=== PATIENT | female | born 1985 | race Caucasian/White ===

== ENCOUNTER → 2016-12-09 | Outpatient (CLI) | payer SELFPAY ==
[2011-01-01 19:54] VITALS: BP 111/67
--- NOTE | 2016-12-09 14:04 | DI ---
US OB TRANSVAGINAL, US OB LESS THAN 14 WEEKS,12/09/2016 12:48 PM: Clinical History: Unsure dates and a patient in the first trimester. Previous Exam: None at this facility. Findings: Transvaginal and transabdominal grayscale and color Doppler sonographic images are obtained through t he pelvis, and demonstrate a single intrauterine gestation with a crown-rump length of 2.0 cm corresp onding with an estimated gestational age of 8 weeks 5 days. No detected Doppler heart tones are obtained. The ovaries are normal bilaterally and contain a few maturing follicles. There is no free fluid. Impression: A single nonviable intrauterine gestation with no detectable Doppler heart tones. Recommend gynecological consultation.
== END ==
LOC: LAB 12:38 → US 12:38
PROVIDERS: ATTEND Family Medicine
DX: O02.1 Missed abortion (principal)
CPT/HCPCS: 36415; 76801; 76817; 84702; 86900; 86901

== ENCOUNTER 2016-12-10 06:07 | Day surgery (SDC) | payer SELFPAY ==
[~2016-12-10 06:07] MED LIST: ATROPINE SULFATE 0.4 MG/1 ML VIAL IVP PRN; HYDROmorphone 2 MG/1 ML IVP PRN; LIDOCAINE W/ SODIUM BICARB 0.5 ML SYR ONE; Lactated Ringers 1,000 ML PRIMARY IV ONE; Lactated Ringers 1,000 ML PRIMARY IV SCH; NORMAL SALINE 10 ML SYRINGE FLUSH IVP PRN; ONDANSETRON 4 MG/2 ML VIAL IVP PRN; Ondansetron ODT Tab 8 MG TAB PO PRN; fentaNYL Inj 100 MCG/2 ML VIAL IVP PRN
[2016-12-10] MEDS ORDERED: SCOPOLAMINE HYDROBROMIDE 1.5 MG - 1 EACH PATCH TRANSDERM ONE ×2 (06:22→06:45)
[2016-12-10] MEDS ORDERED: MIDAZOLAM 5 MG/1 ML ONE (06:39)
[2016-12-10] MEDS ORDERED: fentaNYL Inj 100 MCG/2 ML VIAL ONE (06:39)
[2016-12-10] MEDS ORDERED: Acetaminophen 1000mg Inj 100 ML IV ONE (06:45)
[2016-12-10 06:56] LABS: HEMATOCRIT 42.6 % (37.0-47.0); HEMOGLOBIN 14.6 g/dL (12.0-16.0)
[2016-12-10] MEDS ORDERED: DEXAMETHASONE PF 10 MG/1 ML VIAL ONE (07:40)
[2016-12-10] MEDS ORDERED: ONDANSETRON 4 MG/2 ML VIAL ONE (07:40)
[2016-12-10] MEDS ORDERED: KETOROLAC 30 MG/1 ML VIAL ONE (07:57)
[2016-12-10] MEDS ORDERED: NORMAL SALINE 10 ML SYRINGE FLUSH IVP PRN (08:00)
[2016-12-10] MEDS ORDERED: Sodium Chloride 0.9% 1,000 ML PRIMARY IV SCH (08:00)
[2016-12-10] MEDS ORDERED: IBUPROFEN 800 MG TABLET PO PRN (08:00)
[2016-12-10] MEDS ORDERED: Methylergonovine Tab 0.2 MG TAB PO SCH (08:00)
[2016-12-10] MEDS ORDERED: Lactated Ringers 1,000 ML PRIMARY IV ONE (08:00)
--- NOTE | 2016-12-10 08:05 | OB.OP.NOTE ---
Operative Report Surgeon: Jaden Anesthesia Type: General Anesthesia Provider: Astrid Cotto CRNA Surgery Date: 12/10/16 Preoperative Diagnosis: Missed AB Postoperative Diagnosis: Same Procedure: Suction D&C Estimated Blood Loss (mL): 900 Fluids: 1800 ml Complications: None Findings at Surgery: 12 cm RV uterus preprocedure. 10 cm post. Copious POC. Indications for the Procedure: 8w5d CRL fetus with no FCA. Pt. desired D&C. Description of Procedure: The patient was taken to the operating room and placed supine where general laryngeal mask anesthesia was administered. She was then placed in lithotomy position in [facility]. Examination under anesthesia was unremarkable. She was prepped and draped in the normal sterile fashion and her bladder was emptied of urine with a straight catheter. A weighted speculum was placed in the vagina and the anterior lip of the cervix was grasped with a semen tooth tenaculum. The uterus was sounded to a depth of 12 cm. The cervix was then dilated with Everardo dilators to #30. A 10 mm curved suction curette was then introduced to the uterine fundus and vacuum tubing was applied. The vacuum was turned on and several passages of suction curettage were made with return of copious products of conception. Sharp curettage was then performed with good cry noted in all quadrants except the left posterior quadrant. Several additional passes of suction curettage were then made during which was noted that the length of the cavity had shrunk noticeably. When no additional products of conception were returned, sharp curettage was again performed with good cry noted in all 4 quadrants now. A final passage of suction curettage returned no additional products of conception and minimal blood. The tenaculum was then removed from the cervix and hemostasis was obtained with direct pressure using a sponge stick. Sponge lap and needle counts were correct 2. There were no Locations at surgery. The patient left to recovery in good condition. Plan: Routine postoperative care and discharge to home.
[2016-12-10] MEDS ORDERED: Hetastarch 6% + NS 500 ML IV ONE ×2 (08:11→08:38)
[2016-12-10 09:48] VITALS: TEMP 98
[2016-12-10 09:50] VITALS: RESP 16
== END 2016-12-10 09:35 | disposition home or self-care (01) ==
LOC: SDSC 06:07
PROVIDERS: ATTEND Obstetrics & Gynecology
DX: O02.1 Missed abortion (principal)
CPT/HCPCS: 59820; 85014; 85018; J0131; J1885; J2704; J3010; J1100; J2250; J2405; J7120

== ENCOUNTER 2019-05-10 02:50 | Inpatient (IN) ==
[2019-05-10] MEDS ORDERED: Zolpidem Tab 5 MG TAB PO PRN (05:00)
[2019-05-10] MEDS ORDERED: BUTORPHANOL TARTRATE 2 MG/1 ML VIAL IVP PRN (05:00)
[2019-05-10] MEDS ORDERED: ONDANSETRON 4 MG/2 ML VIAL IVP PRN ×2 (05:00→13:29)
[2019-05-10] MEDS ORDERED: Nalbuphine Inj 20 MG/ML Ampule IVP PRN ×2 (05:00→13:29)
[2019-05-10] MEDS ORDERED: CITRIC ACID/SODIUM CITRATE 30 ML CUP PO PRN (05:00)
[2019-05-10] MEDS ORDERED: NALOXONE 0.4 MG/1 ML VIAL IVP PRN (05:00)
[2019-05-10] MEDS ORDERED: Metoclopramide Inj 10 MG/2 ML VIAL IV PRN (05:00)
[2019-05-10] MEDS ORDERED: Carboprost Inj 250 MCG/ML AMP IM PRN (05:00)
[2019-05-10] MEDS ORDERED: METHYLERGONOVINE MALEATE 0.2 MG/1 ML VIAL IM PRN (05:00)
[2019-05-10] MEDS ORDERED: CefOXitin Inj 2 GM in Sodium Chloride 0.9% 100 ML IV PRN (05:00)
[2019-05-10] MEDS ORDERED: diphenhydrAMINE 50 MG/1 ML VIAL IVP PRN ×2 (05:00→13:29)
[2019-05-10] MEDS ORDERED: TERBUTALINE SULFATE 1 MG/1 ML SDV SUBCUT PRN (05:00)
[2019-05-10] MEDS ORDERED: LIDOCAINE HCL 2 % 10 ML JELLY URO-JECT TOPICAL PRN ×2 (05:00→13:29)
[2019-05-10] MEDS ORDERED: fentaNYL Inj 100 MCG/2 ML VIAL IVP PRN (05:00)
[2019-05-10] MEDS ORDERED: OXYTOCIN 10 UNIT/1 ML IM PRN (05:00)
[2019-05-10] MEDS ORDERED: MISOPROSTOL 200 MCG TABLET RECTAL PRN (05:00)
[2019-05-10] MEDS ORDERED: Phenylephrine Inj 50 MCG in Sodium Chloride 0.9% vial 0.5 ML IVP PRN (05:00)
[2019-05-10] MEDS ORDERED: CALCIUM CARBONATE 500 MG (TUMS) CHEWABLE TABLET PO PRN ×2 (05:00→13:29)
[2019-05-10] MEDS ORDERED: Naloxone Inj 0.01 MG in Sodium Chloride 0.9% vial 1 ML IVP PRN (05:00)
[2019-05-10] MEDS ORDERED: Misoprostol Tab 100 MCG TAB VAGINAL PRN (05:00)
[2019-05-10] MEDS ORDERED: Oxytocin 20 Units + LR 20 UNIT/1,000 ML BAG IV SCH ×3 (05:00→13:29)
[2019-05-10] MEDS ORDERED: Lidocaine 1% 10 MG/ML - 20 ML VIAL SUBCUT PRN (05:00)
[2019-05-10] MEDS ORDERED: LIDOCAINE W/ SODIUM BICARB 0.5 ML SYR SUBD PRN (05:00)
[2019-05-10] MEDS ORDERED: FAMOTIDINE 20 MG/2 ML VIAL IVP PRN ×2 (05:00)
[2019-05-10 06:30] LABS: Hematocrit [HCT] 35.8 % (37.0-47.0); Hemoglobin [HGB] 11.5 g/dL (12.0-16.0); MEAN CORPUSCULAR HGB CONC 32.1 g/dL (33-37); MEAN CORPUSCULAR VOLUME 84.6 FL (81-99); MEAN PLATELET VOLUME 11.5 FL (7.4-12.2); RED BLOOD COUNT 4.23 10^6/uL (4.20-5.40)
[2019-05-10] MEDS: Lactated Ringers-OB Dept 1,000 ML PRIMARY IV SCH ×2 (06:43→11:50)
[2019-05-10] MEDS ORDERED: Lidocaine/Epi Inj 1.5% 5 ML AMPUL EPIDURAL ONE (11:58)
[2019-05-10] MEDS ORDERED: BUPIVACAINE SPINAL 7.5 MG/1 ML - 2 ML IV ONE (12:01)
[2019-05-10] MEDS ORDERED: KETOROLAC 15 MG/1 ML VIAL IVP PRN (12:14)
[2019-05-10] MEDS ORDERED: KETOROLAC 15 MG/1 ML VIAL ONE (12:16)
[2019-05-10] MEDS ORDERED: Lidocaine 1% 10 MG/ML - 20 ML VIAL INTRADERM PRN (13:29)
[2019-05-10] MEDS ORDERED: diphenhydrAMINE 25 MG CAPSULE PO PRN (13:29)
[2019-05-10] MEDS ORDERED: BENZOCAINE/MENTHOL SPRAY 56 GM BOTTLE TOPICAL PRN (13:29)
[2019-05-10] MEDS ORDERED: LANOLIN HPA 40 GM TUBE TOPICAL PRN (13:29)
[2019-05-10] MEDS ORDERED: DIPH,PERTUSS,TET(ADACEL) VAC/PF 0.5 ML (Tdap) IM ONE (13:29)
[2019-05-10] MEDS ORDERED: Ondansetron ODT Tab 4 MG TAB PO PRN (13:29)
[2019-05-10] MEDS ORDERED: HYDROcodone-APAP 5 MG -325 MG TABLET PO PRN (13:29)
[2019-05-10] MEDS ORDERED: ACETAMINOPHEN 325 MG TABLET PO PRN (13:29)
[2019-05-10] MEDS ORDERED: GLYCERIN/WITCH HAZEL 1 BOX TOPICAL PRN (13:29)
[2019-05-10] MEDS ORDERED: Lactated Ringers-OB Dept 1,000 ML ONE (14:45)
[2019-05-10] MEDS: IBUPROFEN 800 MG TABLET PO PRN (18:46)
[2019-05-10] MEDS: DOCUSATE 100 MG CAPSULE PO SCH (21:19)
[2019-05-11] MEDS: IBUPROFEN 800 MG TABLET PO PRN ×2 (01:56→09:50)
[2019-05-11 06:18] LABS: Hematocrit [HCT] 31.3 % (37.0-47.0); Hemoglobin [HGB] 9.5 g/dL (12.0-16.0); MEAN CORPUSCULAR HGB CONC 30.4 g/dL (33-37); MEAN PLATELET VOLUME 11.1 FL (7.4-12.2); RED BLOOD COUNT 3.64 10^6/uL (4.20-5.40)
[2019-05-11] MEDS ORDERED: Prenatal Multivitamin Tab 1 TAB TAB PO SCH (09:00)
[2019-05-11] MEDS ORDERED: DOCUSATE 100 MG CAPSULE PO SCH (09:00)
[2019-05-11] MEDS ORDERED: FERROUS GLUCONATE 324 MG TABLET PO SCH (09:15)
[2019-05-11] MEDS: DOCUSATE 100 MG CAPSULE PO SCH (09:50)
[2019-05-11] MEDS ORDERED: DIPH,PERTUSS,TET(ADACEL) VAC/PF 0.5 ML (Tdap) IM ONE (10:00)
[2019-05-11 10:40] VITALS: BP 114/72; RESP 18; TEMP 97.9; O2SAT 99
== END 2019-05-11 14:35 | disposition home or self-care (01) | DRG 807 ==
LOC: OBIP 05:31
PROVIDERS: ADMIT Family Medicine; ATTEND Family Medicine